=== PATIENT | female | born 1995 | race Caucasian/White ===

== ENCOUNTER 2019-05-07 21:13 | Emergency (ER) | payer OTHER ==
--- NOTE | 2019-05-07 21:25 | ED Physician Documentation ---
History of Present Illness - Stated complaint Stated Complaint: FEMALE / IDU ISSUE - Chief complaint Chief Complaint: Abd Pain - Additonal information Additional information: This is a 23-year-old female who presents with pelvic/vaginal discomfort, as well as concern for IUD being out of place. Patient's IUD placed 4 years ago, it is the Mirena IUD. She has not had periods since this time. She states that Beginning yesterday she felt a little bit of irritation which was a sharp pain "like a paper cut" in her vaginal mucosa, and she noticed a small amount of brownish discharge. When she tried to feel for IUD she felt something hard that she was concerned Was the IUD itself being out of place, so she presents here for further evaluation. She denies vomiting or dysuria. She is sexually active with one partner, denies concern for sexual transmitted infection. No fever. She states in the past when she had a IUD check at a clinic it was found that she had some hair wrapped around the IUD strings and they were matted up, but the health care provider at that time decided to just leave it alone. Review of Systems Constitutional: denies: Fever Throat: denies: Sore throat Cardiac: denies: Chest pain / pressure Respiratory: denies: Dyspnea GI: reports: Abdominal Pain : denies: Dysuria Skin: denies: Rash Immunocompromised: denies: Immunocompromised PD PAST MEDICAL HISTORY - Past Medical History [employer]: Other (IUD) - Allergies Allergies/Adverse Reactions: Allergies Allergy/AdvReac Type Severity Reaction Status Date / Time No Known Drug Allergies Allergy Verified 05/07/19 21:24 - Social History Does the pt have substance abuse?: No - Family History Family history: reports: Non contributory PD ED PE NORMAL - Vitals Vital signs reviewed: Yes - General General: Alert and oriented X 3, No acute distress - HEENT HEENT: PERRL - Neck Neck: Supple, no meningeal sign - Cardiac Cardiac: RRR - Respiratory Respiratory: No respiratory distress - Abdomen Abdomen: Soft, Non distended, Other (No tenderness to palpation of all 4 quadrants, and specifically no RLQ tenderness) - Female Female : Other (Chaperoned by CHAPO Ugarte. External vulva normal in appearance. In the vaginal vault there is a small amoint of brown discharge, no purulence. The IUD strings are visible from the cervix, and the strings are tangled into a 1cm x 2mm oblong hard mat. I am unable to untangle this mat. The cervix is normal in appearance, no cervical motion tenderness.) - Derm Derm: Warm and dry - Extremities Extremities: No deformity - Neuro Neuro: Alert and oriented X 3 - Psych Psych: Normal mood, Normal affect Results - Vitals Vitals: Oxygen O2 Source Room air - Labs Labs: Laboratory Tests 05/07/19 05/07/19 05/07/19 22:00 22:00 22:05 WBC 6.4 RBC 4.51 Hgb 14.1 Hct 42.4 MCV 94.0 MCH 31.3 H MCHC 33.3 RDW 11.9 L Plt Count 286 MPV 9.6 Neut # (Auto) 3.7 Lymph # (Auto) 1.9 Mckean # (Auto) 0.5 Eos # (Auto) 0.2 Baso # (Auto) 0.1 Absolute Nucleated RBC 0.00 Nucleated RBC % 0.0 Sodium 140 Potassium 4.1 Chloride 104 Carbon Dioxide 27 Anion Gap 9.0 BUN 22 H Creatinine 0.9 Estimated GFR (MDRD) 78 L Glucose 88 Calcium 9.4 Total Bilirubin 0.4 AST 23 ALT 24 Alkaline Phosphatase 52 Total Protein 7.9 Albumin 4.7 Globulin 3.2 Albumin/Globulin Ratio 1.5 Lipase 47 Urine Color Urine Clarity Urine pH Ur Specific [place] Urine Protein Urine Glucose (UA) Urine Ketones Urine Occult Blood Urine Nitrite Urine Bilirubin Urine Urobilinogen Ur Leukocyte Esterase Urine RBC Urine WBC Ur Squamous Epith Cells Urine Bacteria Ur Microscopic Review Urine Culture Comments Urine HCG, Qual Chlam trachomat DNA PCR NEGATIVE N.gonorrhoeae DNA (PCR) NEGATIVE T. vaginalis (PCR) NEGATIVE 05/07/19 22:05 WBC RBC Hgb Hct MCV MCH MCHC RDW Plt Count MPV Neut # (Auto) Lymph # (Auto) Mckean # (Auto) Eos # (Auto) Baso # (Auto) Absolute Nucleated RBC Nucleated RBC % Sodium Potassium Chloride Carbon Dioxide Anion Gap BUN Creatinine Estimated GFR (MDRD) Glucose Calcium Total Bilirubin AST ALT Alkaline Phosphatase Total Protein Albumin Globulin Albumin/Globulin Ratio Lipase Urine Color YELLOW Urine Clarity CLEAR Urine pH 6.0 Ur Specific [place] 1.025 Urine Protein NEGATIVE Urine Glucose (UA) NEGATIVE Urine Ketones NEGATIVE Urine Occult Blood SMALL H Urine Nitrite NEGATIVE Urine Bilirubin NEGATIVE Urine Urobilinogen 0.2 (NORMAL) Ur Leukocyte Esterase NEGATIVE Urine RBC 0-5 Urine WBC 0-3 Ur Squamous Epith Cells RARE Squamous Urine Bacteria Rare Ur Microscopic Review INDICATED Urine Culture Comments NOT INDICATED Urine HCG, Qual NEGATIVE Chlam trachomat DNA PCR N.gonorrhoeae DNA (PCR) T. vaginalis (PCR) - Rads (name of study) Pelvic US Radiology: Other (Normal US with normal blood flow to bilateral ovaries. IUD in place.) PD MEDICAL DECISION MAKING - ED course Complexity details: considered differential (Malpositioned IUD, STD, TOA, ovarian torsion, vaginal laceration, menstruation, urinary tract infection) ED course: On exam patient has a benign and non-tender abdomen. Labs are unremarkable. UA negative for infection. GC/chlam sent, though patient's symptoms are not classic for this and by history she is low risk so we will defer empiric treatment. On exam her IUD strings are matted together, this is likely what she felt on her self-exam. I discussed this with her and we elected to leave it as is until she can follow with an OB, as I am unable to untangle the strings and cutting them would leave very little and make eventual removal difficult. The IUD itself is not visible. There is a small amount of brownish discharge which is likely mensturation given the age of patient's IUD it's hormonal effects are likely waning. This could also be the cause of her mild cramping. Pelvic US shows IUD in place without signs of torsion or other abnormality. On re-examination patient is well-appearing with a benign abdomen, no signs of appendicitis. I discussed our work up, the need for close OB follow up, and return precautions including any worsening abdominal pain, pain localizing to the RLQ, fever, or other concerning symptoms, and patient was discharged home. Departure - Departure Disposition: 01 Home, Self Care Clinical Impression: Pelvic pain Condition: Good Instructions: ED Pelvic Pain [facility] Follow-Up: Your,PCP [Other] (For suture removal in 10 days) Your,OB [Other] Comments: You were seen today for a pelvic discomfort. Your IUD appears to be in proper position, the strings are tangled and there is appears to be clot or some hair on the ends of them, I was unable to pull this off during our exam. Please follow-up with an OB provider - they may be able to fix this issue. If you develop worsening pain, vomiting, or other concerning symptoms return to the ED. You may use iburofen or Tylenol for discomfort. Discharge Date/Time: 05/08/19 00:30
[2019-05-07 22:11] LABS: BILIRUBIN,URINE NEGATIVE (NEGATIVE); GLUCOSE, URINE (UA) NEGATIVE (NEGATIVE); KETONES,URINE (UA) NEGATIVE (NEGATIVE); LEUKOCYTE ESTERASE, URINE NEGATIVE (NEGATIVE); NITRITE,URINE NEGATIVE (NEGATIVE); OCCULT BLOOD,URINE SMALL (NEGATIVE); PROTEIN,URINE NEGATIVE (NEGATIVE); UROBILINOGEN,URINE 0.2 (NORMAL) E.U./dL (NORMAL)
[2019-05-07 22:12] LABS: CLARITY,URINE CLEAR (CLEAR); HCG UR QUAL NEGATIVE
[2019-05-07 22:14] LABS: BASOPHILS # (AUTO) 0.1 10^3/uL (0.0-0.1); BASOPHILS % (AUTO) 0.9 %; EOSINOPHILS # (AUTO) 0.2 10^3/uL (0.0-0.7); EOSINOPHILS % (AUTO) 3.8 %; HGB - HEMOGLOBIN 14.1 g/dL (12.0-16.0); LYMPHOCYTES # (AUTO) 1.9 10^3/uL (1.5-3.5); LYMPHOCYTES % (AUTO) 29.7 %; MEAN CORPUSCULAR HEMOGLOBIN 31.3 pg (27.0-31.0); MEAN CORPUSCULAR HGB CONC 33.3 g/dL (32.0-36.0); MEAN PLATELET VOLUME 9.6 fL (7.9-10.8); MONOCYTES # (AUTO) 0.5 10^3/uL (0.0-1.0); MONOCYTES % (AUTO) 8.3 %; NEUTROPHILS # (AUTO) 3.7 10^3/uL (1.5-6.6); PLT - PLATELET COUNT 286 10^3/uL (130-450); RED BLOOD COUNT 4.51 10^6/uL (4.20-5.40); RED CELL DISTRIBUTION WIDTH 11.9 % (12.0-15.0); WHITE BLOOD COUNT 6.4 x10^3/uL (4.8-10.8)
[2019-05-07 22:21] LABS: BACTERIA,URINE Rare /HPF (None Seen); RBC,URINE 0-5 /HPF (0-5); SQUAMOUS EPITHELIAL CELL,UR RARE Squamous (<= Few)
[2019-05-07 22:21] LABS: ALBUMIN 4.7 g/dL (3.2-5.5); ALBUMIN/GLOBULIN RATIO 1.5 (1.0-2.2); BILIRUBIN,TOTAL 0.4 mg/dL (0.2-1.0); CALCIUM 9.4 mg/dL (8.5-10.3); CREATININE 0.9 mg/dL (0.4-1.0); TOTAL PROTEIN 7.9 g/dL (6.7-8.2)
--- NOTE | 2019-05-07 23:42 | Ultrasound Report ---
Reason: pelvic pain check IUD position Procedure Date: 05/07/2019 Accession Number: [id number] / [id number] Procedure: US - Pelvic w/Transvag+Doppler Comp CPT Code: FULL RESULT: EXAM: PELVIC ULTRASOUND WITH DOPPLERS CLINICAL HISTORY: Pelvic pain, check IUD position. COMPARISON: None. TECHNIQUE: Realtime transabdominal imaging performed to identify the uterus and adnexa and as an overview of other pelvic structures, followed by transvaginal imaging for better assessment of the endometrium and adnexa, with static image documentation. Color flow imaging and Doppler spectral analysis was performed to evaluate blood flow to the ovaries given pelvic pain and clinical concern for ovarian torsion. FINDINGS: Uterus: 6.1 x 2.9 x 3.7 cm, volume 34.9 cc. Anteverted position. Normal overall size and echotexture. Team Psychologist raised the possibility of a potential subserosal posterior uterine fundal leiomyoma. I suspect that it represents artifact. Masses: None. Endometrium: 4 mm. IUD in position. Cervix: Unremarkable. Right Ovary: 3.3 x 2.4 x 2.1 cm, volume 8.5 cc. Small collapsing cyst measuring 18 mm. Normal echotexture. Arterial and venous blood flow are present. PSV 28 cm/sec. RI 0.6. Adnexa are unremarkable. Left Ovary: 2.8 x 2.5 x 2.1 cm, volume 7.7 cc. Normal echotexture. Arterial and venous blood flow are present. PSV 14.4 cm/sec. RI 0.6. Adnexa are unremarkable. Free Fluid: Trace free fluid within physiologic limits. Other: None. IMPRESSION: 1. Normal pelvic ultrasound. 2. Arterial and venous blood flow are present to the ovaries bilaterally. RADIA
[2019-05-08 00:22] VITALS: BP 116/76
[2019-05-08 21:19] LABS: TRICHOMONAS VAGINALIS DNA NEGATIVE (NEGATIVE)
== END 2019-05-08 00:30 | disposition home or self-care (01) ==
LOC: ED 21:13
DX: R10.2 Pelvic and perineal pain (principal); Z97.5 Presence of (intrauterine) contraceptive device
CPT/HCPCS: 36415; 76830; 76856; 80053; 81001; 81003; 81025; 83690; 85025; 87086; 87491; 87591; 87661; 93975; 99284

== ENCOUNTER 2020-12-03 08:24 | Emergency (ER) | payer OTHER ==
--- NOTE | 2020-12-03 09:00 | ED Physician Documentation ---
PD HPI CHEST PAIN - Stated complaint Stated Complaint: CHEST PX - Chief complaint Chief Complaint: Cardiac - History obtained from History obtained from: Patient - Additional information Additional information: 25-year-old woman with no pertinent past medical history presents with chest pain intermittent over the past 3 years, usually occurring for a day at a time once a month, sometimes on the left side and this time on the right, worse yesterday and improving this morning. Patient states that it is gradual in onset, worse with movement, cough, walking, nonradiating, mild at present. Denies fever, cough, hemoptysis, nausea, shortness of breath, leg swelling, recent surgery or trauma, prior clots, prior cardiac history or family history of cardiac disease at a young age. She does take the oral contraceptive pill and has been on it for the past 9 months. Review of Systems Ten Systems: 10 systems reviewed and negative Cardiac: reports: Chest pain / pressure. denies: Palpitations Respiratory: denies: Dyspnea Musculoskeletal: denies: Back pain PD PAST MEDICAL HISTORY - Past Medical History [employer]ACHINE: Other - Past Surgical History Past Surgical History: Yes Ortho: Other - Allergies Allergies/Adverse Reactions: Allergies Allergy/AdvReac Type Severity Reaction Status Date / Time No Known Drug Allergies Allergy Verified 12/03/20 08:35 - Social History Does the pt smoke?: No Smoking Status: Never smoker Does the pt drink ETOH?: Yes Does the pt have substance abuse?: No - Immunizations Immunizations are current?: Yes PD ED PE NORMAL - Vitals Vital signs reviewed: Yes - General General: Alert and oriented X 3, No acute distress, Well developed/nourished - HEENT HEENT: Atraumatic, PERRL, EOMI - Neck Neck: Supple, no meningeal sign - Cardiac Cardiac: RRR, No murmur - Respiratory Respiratory: No respiratory distress, Clear bilaterally - Derm Derm: Normal color, Warm and dry - Extremities Extremities: No deformity - Neuro Neuro: Alert and oriented X 3 - Psych Psych: Normal mood, Normal affect Results - Vitals Vitals: Vital Signs - 24 hr 12/03/20 08:25 Temperature 37.1 C Heart Rate 71 Respiratory 16 Rate Blood Pressure 116/66 O2 Saturation 100 Oxygen O2 Source Room air PD MEDICAL DECISION MAKING - ED course ED course: 25-year-old woman presents emergency department with chest pain over the past 3 years. Her EKG is normal sinus rhythm with rate of 73 and normal intervals. Her exam is noncontributory with the exception of some mild fibrocystic changes in the right upper lateral breast where she endorses pain. Her chest x-ray is normal. Differential considered. Patient will follow up with [facility]. Return precautions discussed. Departure - Departure Clinical Impression: Chest pain Condition: Good Instructions: ED Chest Pain Atypical Unkn Cause Comments: You were seen in the emergency department for right-sided chest pain. It is possible that the pain you are experiencing is related to fibrocystic changes in the breast, or it could be muscular in origin. Your EKG and chest x-ray in the emergency department were normal. Your vital signs and physical exam were omar l with the exception of mild fibrocystic changes in your right upper breast where you are having pain. You should follow-up with [facility] for referral to corporate learning consultant. Return to the emergency department if you have any new or worsening symptoms or other concerns.
--- NOTE | 2020-12-03 09:21 | XRAY Report ---
PROCEDURE: Chest 2 View X-Ray INDICATIONS: R sided chest pain for several months TECHNIQUE: 2 view(s) of the chest. COMPARISON: None. FINDINGS: Surgical changes and devices: None. Lungs and pleura: No pleural effusions or pneumothorax. Lungs are clear. Mediastinum: Mediastinal contours are normal. Heart size is normal. Bones and chest wall: No suspicious bony abnormalities. Soft tissues appear unremarkable. IMPRESSION: No acute cardiopulmonary process demonstrated radiographically. Reviewed by: Casa Connell MD on 12/03/2020 9:20 AM PDT Approved by: Casa Connell MD on 12/03/2020 9:20 AM PDT Station ID: [id number]
[2020-12-03 09:52] VITALS: BP 107/71
== END 2020-12-03 09:54 | disposition home or self-care (01) ==
LOC: ED 08:24
DX: R07.9 Chest pain, unspecified (principal)
CPT/HCPCS: 93005; 99283; 99284